=== PATIENT | female | born 1945 | race Caucasian/White ===

== ENCOUNTER 2020-03-15 10:43 | Outpatient (CLI) | payer MEDICARE, BC ==
--- NOTE | ~2020-03-15 | HEMODYNAMI ---
PATIENT:SUSAN RUELAS MEDICAL RECORD: [id number] : 49 LOCATION:[facility] ADMISSION DATE: 03/15/20 Generatedon:03/15/202012:30 Patient name: SUSAN RUELAS Patient #: [id number] SSN: : 1945 Date of study: 03/15/2020 Page: Of Hemodynamic Procedure Report Patient Data Patient Demographics Procedure consent was obtained First Name: SUSAN Gender: Female Last Name: SURAJ : 1945 [facility] Initial: [place]RE[place]LE Age: 74 year(s) Patient #: [id number] Race: Unknown Additional ID: [id number] Contact details Address: [address] [place] [address] State: [place] City: [place] Zip code: [address] Admission Admission Data Admission Date: 03/15/2020 Admission Time: 10:43 Procedure Procedure Types Cath Procedure Peripheral Cath Diagnostic Procedure Miscellaneous Aspiration/Injection (Joint) Procedure Description Procedure Date Procedure Date: 03/15/2020 Procedure Start Time: 12:12 Procedure Staff Name Function Naren Mi MD Performing Physician Sina Gutierrez RT Monitor RICARDO AL RT Monitor Procedure Data Cath Procedure Fluoroscopy Diagnostic fluoroscopy Total fluoroscopy Time: 1.6 time: 1.6 min min Diagnostic fluoroscopy Total fluoroscopy dose: 29 dose: 29 mGy mGy Hemodynamics Rest Pre Cath Intra NCS Post Cath Procedure Log Time Note 11:36:55 SAFE-T PLUS MYELOGRAM TRAY opened to sterile field. 11:53:32 RICARDO AL RT (R) sent for patient. Start room use. 11:53:43 Patient received from Other to IR Alert and oriented. Tansferred to table in Supine position. 11:53:45 Signed procedure consent form obtained from patient. 11:53:47 ECG and BP/O2 sat monitors applied to patient. 11:53:48 Full Disclosure recording started 11:53:49 - 11:53:50 Pre-procedure instructions explained to patient. 11:53:51 Pre-op teaching completed and patient verbalized understanding. 11:53:58 Is patient on blood thinner?No 11:54:18 Left Hip was prepped with betadine and draped in sterile fashion. 12:: Physician arrived : --------ALL STOP TIME OUT------ 12::28 Final Timeout: patient, procedure, and site verified with staff and physician. All members of the team are in agreement. 12:11:30 Left groin site verified by team. 12:11:38 Sedation plan: Local Anesthetic Medication:Lidocaine 12:11:57 Procedure started. 12:12:04 Local anesthetic to Left Hip with Lidocaine 1% by Naren Mi MD.INITIAL ACCESS ONLY 12:27:42 Pt.[place] to tolertate procedure procedure aborted 12:27:47 Procedure ended.(Physican Out) 12:28:05 Fluoroscopy time 01.60 minutes. 12:28:07 Fluoroscopy dose: 29 mGy 12:28:07 Flurop Dose total: 29 12:29:01 SITE STABLE LT GROIN BANDAIDE APPLIED 12:29:15 PT SENT HOME Device Usage Item Name Manufacture Quantity Catalog Hospital Part Current Minimal Lot# / Number Charge Number Stock Stock Serial# Code SAFE-T [employer] 1 [id number] PLUS MYELOGRAM TRAY Signature Audit Satin Stage Time Signature Unsigned Intra-Procedure 03/15/2020 Sina 12:30:14 PM Matt RT (R) (CV) [facility] [address] [place] [address]
--- NOTE | 2020-03-15 13:04 | NUR ---
1250-RECD FROM IR POST FAIL[facility]EM[facility]. ALERT. RESP WITH EASE.
--- NOTE | 2020-03-15 14:37 | NUR ---
1250 VITAL SIGNS RECORDED ON POST PROCEDURE FORM. 1240 PT READY FOR DISCHARGE HOME. DISCHARGE INSTRUCTIONS REVIEWED WITH PT AND HER . PT UNDERSTANDS THAT IF SHE BEGINS TO BLEED AT PUNCTURE SITE TO HOLD PRESSURE OR IF SHE HAS ANY SWELLING AT SITE TO NOTIFY DR HOWARD.
== END 2020-03-15 13:44 | disposition home or self-care (01) ==
LOC: D.RAD 10:43
PROVIDERS: ATTEND Orthopaedic Surgery
DX: M16.12 Unilateral primary osteoarthritis, left hip (principal)